=== PATIENT | female | born 1945 | race Caucasian/White ===

== ENCOUNTER 2016-07-16 11:30 | Observation (INO) | payer MEDICARE, OTHER ==
[~2016-07-16] VITALS: Ht 162.6 cm; Wt 52.0 kg
[~2016-07-16 11:30] MED LIST: ALPR0.25 PO; METO-448 PO; MULT-860 PO; VANC10VI PO; VITAMIN E PO; VITAMIN-C PO; WARFARIN; ZOLP10TA PO; [UNRECOGNIZED DRUG - OTHER]
[2016-07-16] MEDS ORDERED: HYDR-906 PO (12:45)
[2016-07-16] MEDS ORDERED: ALBU90AE INHALATION (12:45)
[2016-07-16] MEDS ORDERED: AMLO-145 PO (12:45)
[2016-07-16] MEDS ORDERED: SIME125T8 PO (12:45)
[2016-07-16 13:14] VITALS: BP 113/68; PULSE 83; RESP 18
[2016-07-16] MEDS ORDERED: ONDANSETRON 4 MG INJ IV PRN (13:30)
[2016-07-16] MEDS ORDERED: MAGNESIUM HYDROXIDE 30ML CUP PO PRN (13:30)
[2016-07-16] MEDS ORDERED: NACL 0.9% 3 ML SYG IV SCH (13:30)
[2016-07-16] MEDS ORDERED: ACETAMINOPHEN 325 MG TAB PO PRN (13:30)
[2016-07-16 13:36] VITALS: Ht 162.6 cm; Wt 52.0 kg
[2016-07-16 14:19] LABS: ADD UMIC NO; URINE BILIRUBIN (Dip) NEGATIVE (NEGATIVE); URINE BLOOD (Dip) NEGATIVE (NEGATIVE); URINE COLOR LT. YELLOW (YELLOW); URINE GLUCOSE (Dip) NEGATIVE (NEGATIVE); URINE KETONES (Dip) NEGATIVE (NEGATIVE); URINE LEUKOCYTE ESTERASE (Dip) NEGATIVE (NEGATIVE); URINE NITRITE (Dip) NEGATIVE (NEGATIVE); URINE TOTAL PROTEIN (Dip) NEGATIVE (NEGATIVE); URINE UROBILINOGEN (Dip) 0.2 E.U./dL (0.1-1.0)
[2016-07-16] MEDS: MULTIVITAMINS/MINERALS TAB PO SCH (14:21)
--- NOTE | 2016-07-16 14:53 | PREOPHP ---
DATE OF ADMISSION: 07/16/2016 REASON FOR ADMISSION: Anemia, recurrence of lung cancer, and abdominal pain. HISTORY OF PRESENT ILLNESS: This 70-year-old female was admitted today because of increasing abdomi nal pain. The patient was seen by me last week after she was discharged from [facility] because of acute respiratory failure with hypoxia, acute bronchitis. The patient has k nown lung cancer. She was initially diagnosed with this in 2014. She had a right lung cancer and s he underwent a course of chemotherapy and radiation. She has been in remission. 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 The patient was seen by me as I mentioned above in my office and at that time she had lower abdominal pain with discoloration and large ecchymoses. The patient had been on Coumadin for intermittent atrial fibrillation; however, h er INR was low at 1.5. I did tell the patient to stop the Coumadin at that time. The patient has a lso had a cough. The patient has been taking the following medications: 1. Albuterol inhaler 2 puffs every 4 hours as needed. 2. Amlodipine 5 mg a day. 3. Guaifenesin extended release. 4. Atrovent inhaler 2 puffs every 6 hours as needed. 5. [place] 325/5 every 4 hours p.r.n. pain. 6. She was on a tapering dose of prednisone. 7. Alprazolam 0.25 p.o. daily. 8. Gas-X 125 p.o. b.i.d. p.r.n. abdominal pain. 9. The patient has previously been on metoprolol 25 mg twice a day which was not continued. 10. She is on Effexor XR 150 mg a day. 11. Prolia 60 mg subQ every 6 months. PAST MEDICAL HISTORY: Her past medical history is remarkable for peptic ulcer disease, Crohn's dis ease, dysthymic disorder, peptic ulcer disease, hypertension, macular degeneration and lung cancer a s mentioned above. SURGICAL HISTORY: Appendectomy, tonsillectomy, breast biopsy, lung tumor biopsy. FAMILY HISTORY: Father is of lung cancer. Mother is alive. She has one sibling from kidney disease. SOCIAL HISTORY: The patient was a former smoker, has not smoked in years. She does not use recreat ional drugs. She does drink alcohol socially. ALLERGIES: PENICILLIN. PHYSICAL EXAMINATION: GENERAL: At this time reveals a well-developed female in no apparent distress. VITAL SIGNS: Temperature 97.6, pulse of 83, respirations 18, blood pressure 113/68, O2 saturation 9 8% on room air. HEENT: Head normocephalic. Eyes: Extraocular muscles intact. NOSE AND MOUTH: Normal. NECK: Supple. No neck vein distention. LUNGS: There was some congestion. There were diminished breath sounds bilaterally with an occasion al rhonchi which cleared with coughing. HEART: Regular rhythm. No murmurs, gallops or rubs. ABDOMEN: There is some ecchymotic discoloration over the lower abdomen. There is tenderness and wh at seems to be a distended bladder which is tender on the lower abdomen. Upper abdominal exam she d oes have some slight left upper quadrant tenderness with no rebound. EXTREMITIES: Trace pretibial edema. NEUROLOGIC: Grossly intact. IMPRESSION: 1. History of right-sided lung cancer, status post chemotherapy and radiation treatment. She was i n remission until recently when she had a CAT scan of the chest done at [facility] which showed a mediastinal mass and superior vena cava syndrome. This is all consistent with recurrence of lung cancer. 2. Distended urinary bladder. 3. Anemia. 4. History of atrial fibrillation, flutter was previously on Coumadin. 5. Hypertension. 6. Dysthymic disorder. 7. Crohn's disease. 8. Chronic obstructive pulmonary disease. PLAN: 1. Order CAT scan of chest, abdomen and pelvis. 2. Routine laboratory tests. 3. Routine medications. 4. Oncology consultation with Dr. Sparks. Dictated By: MASSIMO POE MD, ND/BRYCE Conf#: [id number] DID#: [id number]
[2016-07-16] MEDS: HYDROCODONE/APAP (5/325) TAB PO PRN (15:47)
[2016-07-16 16:03] LABS: ADD SCAN DIFF NO
[2016-07-16 16:08] LABS: BASOPHILS % 0.2 % (0.0-2.0); EOSINOPHILS # 0.1 10^3/ul (0.0-0.5); EOSINOPHILS % 1.2 % (0.0-7.0); HEMATOCRIT 28.3 % (37.0-47.0); HEMOGLOBIN 9.3 g/dl (12.0-16.0); LYMPHOCYTES # 1.3 10^3/ul (0.8-2.9); LYMPHOCYTES % 15.1 % (15.0-51.0); MEAN CORPUSCULAR HEMOGLOBIN 32.1 pg (29.0-33.0); MEAN CORPUSCULAR HGB CONC 32.9 g/dl (32.0-37.0); MEAN CORPUSCULAR VOLUME 97.6 fl (82.0-101.0); MEAN PLATELET VOLUME 8.6 fl (7.4-10.4); MONOCYTE # 0.6 10^3/ul (0.3-0.9); MONOCYTES % 6.5 % (0.0-11.0); NEUTROPHIL # 6.5 10^3/ul (1.6-7.5); NEUTROPHILS % 76.5 % (39.0-77.0); PLATELET COUNT 280 10^3/UL (140-415); RED CELL DISTRIBUTION WIDTH 17.5 % (11.5-14.5); WHITE BLOOD COUNT 8.5 10^3/ul (4.8-10.8)
--- NOTE | 2016-07-16 16:15 | RADRPT ---
PROCEDURE: XR Chest. CLINICAL INDICATION: Shortness of breath. TECHNIQUE: Single frontal view. COMPARISON: 12/25/2013. FINDINGS: The lungs are clear. The heart size is normal. There is no pleural effusion or pneumothorax. There are 3 surgical anchors in the left humeral head. IMPRESSION: 1. Prior left shoulder surgery. 2. Otherwise normal chest x-ray. RPTAT: QQ .Tereso Watkins MD, MD Date Time Electronically viewed and signed by .Tereso Watkins MD, on 07/16/2016 16:15 .R/
[2016-07-16 16:29] LABS: INR 0.94; PARTIAL THROMBOPLASTIN TIME 23.2 Sec (25.0-35.0); PROTIME 12.6 Sec (12.2-14.2)
[2016-07-16 16:30] LABS: ALBUMIN 3.6 g/dl (3.3-4.9); ALBUMIN/GLOBULIN RATIO 1.33; BILIRUBIN,INDIRECT 0.6 mg/dl (0-1.1); BILIRUBIN,TOTAL 0.6 mg/dl (0.2-1.3); CREATININE 0.61 mg/dl (0.44-1.00); MAGNESIUM 2.1 mg/dl (1.7-2.5); PHOSPHORUS 3.2 mg/dl (2.5-4.9); POTASSIUM 3.7 mmol/L (3.5-5.1); TOTAL PROTEIN 6.3 g/dl (6.1-8.1)
[2016-07-16] MEDS ORDERED: IOHEXOL 14.3 MG(I)/ML (ADULT) BTL PO ONE ×2 (17:30)
[2016-07-16] MEDS ORDERED: BARIUM SULF 2% 450 ML BTL (BERRY SMOOTHIE) PO ONE ×3 (17:30→18:00)
[2016-07-16 19:01] VITALS: BP 122/68; RESP 18
--- NOTE | 2016-07-16 19:47 | RADRPT ---
PROCEDURE: XR Chest. CLINICAL INDICATION: Possible anterior mediastinal mass. TECHNIQUE: PA and Lateral views of the chest were obtained. COMPARISON: 12/25/2013 and 07/16/2016 Chest x-ray FINDINGS: The cardiomediastinal silhouette is within normal limits of size. No soft tissue abnormality anterio r mediastinum. CT correlation may be considered for further evaluation. Hyperexpansion compatible w ith COPD. Atherosclerotic calcification of the aorta. The lungs are clear without pleural effusion or focal consolidation. No pneumothorax. The osseous structures and soft tissues are unremarkable. 3 surgical anchors in the left humeral head. IMPRESSION: 1. No evidence for active cardiopulmonary disease. Hyperexpansion compatible with COPD. RPTAT:AAJJ Aletha Tobin Physician Date Time Electronically viewed and signed by Physician Sanjeev on 07/16/2016 19:47 FABIENNE/
--- NOTE | 2016-07-16 20:24 | RADRPT ---
Vent Rate: 77 bpm RR Interval: 0 msec RI Interval: 162 msec QRS Duration: 78 msec QT Interval: 376 msec QTC Interval: 425 msec P-R-T Mason: 67 - 47 - 66 degrees Normal sinus rhythm Normal ECG Electronically Signed By: Jose Pardo [id number]
[2016-07-16] MEDS ORDERED: SOD CHLORIDE 0.9% 100 ML ONE (20:58)
[2016-07-16] MEDS ORDERED: IOHEXOL 300MG/ML 150 ML BTL ONE (20:58)
[2016-07-16] MEDS: METOPROLOL 25 MG TAB PO SCH (21:01)
--- NOTE | 2016-07-16 21:55 | RADRPT ---
PROCEDURE: CT abdomen and pelvis with intravenous contrast. CLINICAL INDICATION: hx of small cell CA of lung--pelvic mass and hemorrhage TECHNIQUE: Following intravenous contrast, spiral CT of the abdomen pelvis was performed and is re constructed at 2.5 mm contiguous axial intervals from the dome of the diaphragm to the inferior pubi c rami. Computer reformatted coronal and sagittal images are included. CT D I 7 millicurie Dose 471 millicurie per centimeter COMPARISON: None. FINDINGS: The liver is of normal size, contour and attenuation with no mass or intrahepatic ductal dilatation. No gallstones are present. No adrenal or pancreatic abnormalities present. Calcified granulomata are present in the spleen. Kidneys excrete contrast symmetrically. No hydronephrosis, calculus or solid masses present. Multip le cortical cysts are seen in the left kidney. Ureters are of normal course and caliber with no sto ne. No bladder mass or stone is present. Cordova catheter is present in the urinary bladder. Calcified fibroids are seen in an atrophic postmenopausal uterus. No adnexal mass is visualized. No bowel mass or obstruction is seen. There is constipation. There is no phlegmon, ascites or pneumo peritoneum. No aneurysm is detected. Calcified plaque is noted in the aorta. There is no adenopathy. Visible but nonpathologically enlarged nodes are seen in the gastrohepatic l igament. The osseous structures are intact. No lytic or blastic lesions are identified. There is facet arthr opathy in the lower lumbar spine. Noted is a left rectus sheath hematoma measuring 7.6 cm T R by 4.4 cm AP by 8.5 cm CC. No active ex travasation is noted. Hypertrophied venous collaterals are seen in the anterior abdominal wall. IMPRESSION: No evidence of urolithiasis, obstructive uropathy, diverticulitis or appendicitis. No evidence of metastatic disease. Cortical cysts left kidney. Left rectus sheath hematoma without active extravasation. .Ethan Goldman MD, MD Date Time Electronically viewed and signed by .Ethan Goldman MD, on 07/16/2016 21:55 .A/
--- NOTE | 2016-07-16 22:00 | RADRPT ---
PROCEDURE: Postcontrast CT Chest. CLINICAL INDICATION: Lung cancer TECHNIQUE: The study was performed utilizing a multidetector CT scanner. Direct spiral 1 mm axial sections were obtained from the thoracic inlet to the upper abdomen with the use of 100 cc of Omnipa que 350 nonionic intravenous contrast material and reformatted at 2.5 millimeter contiguous axial in tervals. Coronal, sagittal and 3-D reformations were obtained. The images were reviewed on a PACS wo [employer]. CT D I 7 mCi. Dose 471 mCi per centimeter COMPARISON: CT chest November 16, 2013 FINDINGS: There is hyperinflation with emphysema most pronounced in the upper lobes. Fibrotic scar is again n oted in the apical segment of the right upper lobe. There is linear fibrosis or plate-like atelecta sis in the right lower lobe. No alveolar infiltrate or mass is present. There is no pneumothorax a nd no pleural effusion is seen. There are calcified nonenlarged mediastinal nodes compatible with o ld granulomatous disease. No hilar or mediastinal adenopathy or masses present. There is mild aneu rysmal dilatation of the ascending thoracic aorta measuring 3.5 cm in diameter. Coronary artery patti cifications are present. Noted is critical stenosis or occlusion of the superior vena cava. There are extensive hypertrophied chest wall venous collaterals. No pulmonary embolism is detected. Ther e is no axillary, supraclavicular or internal mammary chain adenopathy. No lytic or blastic lesions are seen. IMPRESSION: Emphysema. Scarring and apical segment right upper lobe and right lower lobe. No evidence of residu al, recurrent or metastatic disease. Old granulomatous disease. Critical stenosis versus occlusion superior vena cava with hypertrophied chest wall collaterals. .Ethan Goldman MD, Date Time Electronically viewed and signed by .Ethan Goldman MD, on 07/16/2016 21:59 .A/
[2016-07-16] MEDS: ALPRAZOLAM 0.5 MG TAB PO PRN (23:01)
--- NOTE | 2016-07-16 23:48 | CONS ---
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 Dear Dr. Poe: HISTORY OF PRESENT ILLNESS: Thank you very much for asking me to see this very interesting and plea estefani patient in oncologic consultation. As you know, I am familiar with Mrs. Cruz, who I initi ally saw in 07/2013. At that time, the patient had recently been noted to have a right suprahilar a nterior mediastinal mass. This was discovered when the patient was undergoing cardiac evaluation, w hich included a nuclear medicine stress test. 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 The patient did undergo combined chemotherapy and radiation therapy. 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 She completed chemotherapy on 11/05/2013. The patient also had radiation therapy to the chest. This was completed in 10/2013. Following the completion of these treatments, the patient had prophylactic cranial radiation, which was completed on 04/26/2014. The patient has never had any evidence of recurrence of disease. In 03/2015, the patient had a PET CT scan, which did not demonstrate any evidence of recurrent disea se, but did show right-sided rib fractures in a pattern, which was felt to be typical for trauma. The patient was admitted to [facility] at this time, as the patient has been exper iencing increase in lower abdominal pain with a large ecchymotic area on the anterior abdominal wall and pelvic discomfort. The patient apparently was hospitalized at [facility] approximately 2 weeks ago. The patie nt stated that overnight that she had been found to have developed a large abdominal wall ecchymosis , which has increased over time. The patient had initially been on warfarin, but this apparently wa s discontinued. The patient has not taken warfarin now for over a week. During the hospitalization at [facility], she was found to have a mediastinal mass with rosa dence of superior vena caval syndrome. The patient, on admission now, has had a chest x-ray. This was a single view and it was normal exce pt for evidence of prior left shoulder surgery. On admission, white count 8500 with an absolute mamadou trophil count of 6500, absolute lymphocyte count of 1300, hemoglobin 9.3, hematocrit 28.3, MCV 97.6, MCH 32.1, MCHC 32.9, RDW 17.5, and platelet count 280,000. Prothrombin time 12.6 seconds, INR 0.94 , PTT 23.2 seconds. Sodium 133, potassium 3.7, creatinine 0.61, BUN 13, calcium 9.0. Total bilirub in 0.6, direct bilirubin 0, AST 20, ALT 32, alkaline phosphatase 70. Total protein 6.3, albumin 3.6 . PAST MEDICAL HISTORY: Does include the history of the small cell carcinoma of the lung. Other medi patti problems include a history of hypertension. The patient has had a left shoulder humeral fractur e in the past. The patient also states that she has a history of Crohn disease. This was present s edgar her early 20s. She has been treated in the past with Humira. She states she had an excellent response, but then became refractory. Her last treatment with Humira was approximately 8 years ago. PAST SURGICAL HISTORY: Included left shoulder surgery. She has also had a segmental resection of t he small bowel due to her Crohn disease. Other surgeries have included an appendectomy, tonsillecto my, and breast biopsy. MEDICATIONS: At this time include: 1. Amlodipine 5 mg per day. 2. Atrovent inhaler 2 puffs every 6 hours as needed. 3. Albuterol 2 puffs every 4 hours as needed. 4. Hydrocodone with acetaminophen 5/325 every 4 hours p.r.n. 5. Alprazolam 0.25 mg daily. 6. Effexor XR 150 mg daily. 7. Denosumab 60 mg subq every 6 months. SOCIAL HISTORY: The patient is . She has not knowingly been exposed to industrial toxins, b ut has received both cytotoxic chemotherapeutic agents and ionizing radiation in the form of radiati on therapy as noted above. FAMILY HISTORY: Remarkable that the patient's father apparently had lung cancer. SOCIAL HISTORY: The patient did not smoke in the past. Has not smoked now, however, in several yea rs. She does drink alcohol minimally. ALLERGIES: THE PATIENT IS ALLERGIC TO PENICILLIN. PHYSICAL EXAMINATION: At this time: VITAL SIGNS: Temperature 97.6, pulse 83 per minute and regular, respirations 18, blood pressure 113 /68, pulse oximetry 98% on room air. GENERAL: Otherwise, the patient is a well-developed, well-nourished female in no acute distress. SKIN: There is a large ecchymotic area on the patient's entire anterior lower abdomen. There are o ther ecchymotic areas on the dorsal aspect of both hands. HEENT: Normocephalic. No evidence of trauma. Pupils equal, round, react to light and accommodatio n. Sclerae nonicteric. Oral mucosa is moist without lesions. Tongue is well papillated. No gingi sami hyperplasia. No hypertrophy of Waldeyer ring. No mucosal telangiectasias. NECK: Supple. No jugular venous distention or thyroid enlargement. CHEST: Decreased breath sounds throughout. More decreased on the left than on the right. There is some dullness to percussion on the left as well. The chest is asymmetrical with a bulging on the l eft hemithorax along the left sternum. HEART: Regular sinus rhythm. No S3, S4, or murmurs. ABDOMEN: Includes a large ecchymotic area in the lower abdomen. There is a firm mass in the suprap ubic area, which is tender to touch. There is no ascites. Bowel sounds are active. EXTREMITIES: Good range of motion. No clubbing or cyanosis. No edema. No palpable cords or Keyla s sign. VASCULAR: There is a markedly distended venous pattern on the abdomen, particularly on the left armin e of the abdomen. Also on the left anterior chest. There is no erythema over these areas. NEUROLOGIC: Within normal limits. DISCUSSION: This patient does have a history of the previous small cell carcinoma of the lung. She has been treated in the past with combined chemotherapy and radiation therapy, including prophylact ic cranial radiation. The patient has had no evidence of recurrent disease since the discontinuatio n of all therapy in 04/2014. The patient is now apparently been found to have an anterior mediastinal mass and possible vena cava l syndrome during recent hospitalization at [facility]. The patient was [facility] t [facility] for respiratory symptoms, which seemed to have improved. She denies chest pain. She has had no cough or hemoptysis. The patient does have a large ecchymotic area on the anterior abdominal wall with what is felt to be distended urinary bladder, but may actually be a pelvic mass and/or hematoma. The presence of the anterior mediastinal mass and the markedly dilated anterior chest wall and abdom inal wall veins suggest a venocaval obstruction, although it is interesting that the patient does no t have jugular venous distension or positive Kussmaul sign. As noted, the patient has had a previous small cell carcinoma of the lung, and certainly the most li gilbert etiology for the mediastinal mass and possibly pelvic mass, may be recurrent small cell carcino ma, although it would be unusual for the patient to have gone 2 years in apparent remission. One must consider the possibility as well of a second malignancy. The patient had in the past been on Humira and therefore does have an increased risk of malignant disease, such as lymphoproliferativ e disorders. The patient, however, has not been on Humira for over 5 years. The patient is moderately anemic now. As noted, there is a pelvic mass, which may actually represen t a hematoma, which would be quite large, and may account somewhat for the patient's anemia. At this time, I will request a lateral chest x-ray, which is more likely to demonstrate the previous ly noted mediastinal mass. We will also obtain a CT scan of the abdomen and pelvis as well as chest , both with and without contrast. Would also request a CEA at this time. If the patient is found to have a mediastinal mass or other evidence of malignancy, a biopsy will be necessary to rule out either recurrence of small cell carcinoma or a second malignancy. Once again, thank you very much for the opportunity of participating in the medical care of this jey y interesting and pleasant patient. I will be happy to follow this patient with you and assist in h er oncologic evaluation and follow up as necessary. With warmest regards, Dictated By: GEORGE INGRAM MD SR/NTS Conf#: [id number] DID#: [id number] CC: YAYA POE MD;*EndCC*
[2016-07-17 07:55] VITALS: BP 127/84; RESP 18
[2016-07-17] MEDS: MULTIVITAMINS/MINERALS TAB PO SCH (08:54)
[2016-07-17] MEDS: METOPROLOL 25 MG TAB PO SCH ×2 (08:54→22:19)
[2016-07-17] MEDS: HYDROCODONE/APAP (5/325) TAB PO PRN ×2 (08:54→13:17)
[2016-07-17] MEDS ORDERED: AMLODIPINE 5 MG TAB PO SCH (09:00)
--- NOTE | 2016-07-17 09:24 | PN ---
Date/Time of Note Date/Time of Note DATE: 07/17/16 TIME: 09:16 Assessment/Plan VTE Prophylaxis VTE Prophylaxis Intervention: contraindicated VTE Contraindication Reason: bleeding Lines/Catheters IV [facility] Urinary Cath still in place: No Assessment/Plan Chief Complaint/Hosp Course 1. abdominal pain due to L rectus muscle hematoma . She was on coumadin 2. superior venacava syndrome , for MRI today 3. h/o lung ca , s/p radiation and chemotherapy , no obvious recurrence on CT of chest or abdomen . 4. COPD 5. anemia 6. a fib/flutter Problems: Subjective 24 Hr Interval Summary Free Text/Dictation she continues to have L lower abdominal pain . Eyes: no complaints ENT: no complaints Respiratory: cough, shortness of breath Cardiovascular: no complaints Gastrointestinal: pain Exam/Review of Systems Vital Signs Vitals Vital Signs Date Time Temp Pulse Resp B/P Pulse Ox O2 Delivery O2 Flow Rate FiO2 07/17/16 07:55 98.1 92 18 127/84 97 07/16/16 13:14 Room Air Intake and Output 07/16/16 07/16/16 07/17/16 15:00 23:00 07:00 Intake Total 600 ml 640 ml Output Total 550 ml 1800 ml Balance 50 ml -1160 ml Exam Constitutional: alert, oriented, well developed Eyes: nl conjunctiva ENMT: nl external ears & nose Respiratory: congested cough, diminished breath sounds Cardiovascular: regular rate and rhythm Gastrointestinal: soft, tender Musculoskeletal: nl extremities to inspection Results Result Diagram: 07/16/16 1554 07/16/16 1554 Results 24 hrs Laboratory Tests Test 07/16/16 13:55 07/16/16 15:54 Urine Color LT. YELLOW Urine Clarity CLEAR Urine pH 6.5 Urine Specific [place] <=1.005 L Urine Ketones NEGATIVE Urine Nitrite NEGATIVE Urine Bilirubin NEGATIVE Urine Urobilinogen 0.2 E.U./dL Urine Leukocyte Esterase NEGATIVE Urine Hemoglobin NEGATIVE Urine Glucose NEGATIVE Urine Total Protein NEGATIVE White Blood Count 8.5 # Red Blood Count 2.90 #L Hemoglobin 9.3 #L Hematocrit 28.3 #L Mean Corpuscular Volume 97.6 Mean Corpuscular Hemoglobin 32.1 Mean Corpuscular Hemoglobin Concent 32.9 Red Cell Distribution Width 17.5 H Platelet Count 280 Mean Platelet Volume 8.6 Neutrophils % 76.5 Lymphocytes % 15.1 Monocytes % 6.5 Eosinophils % 1.2 Basophils % 0.2 Nucleated Red Blood Cells % 0.0 Neutrophils # 6.5 Lymphocytes # 1.3 Monocytes # 0.6 Eosinophils # 0.1 Basophils # 0.0 Nucleated Red Blood Cells # 0.0 Prothrombin Time 12.6 Prothrombin Time Ratio 1.0 INR International Normalized Ratio 0.94 Activated Partial Thromboplast Time 23.2 L Sodium Level 133 L Potassium Level 3.7 Chloride Level 101 Carbon Dioxide Level 28 Anion Gap 8 Blood Urea Nitrogen 13 Creatinine 0.61 Glucose Level 111 Calcium Level 9.0 Phosphorus Level 3.2 Magnesium Level 2.1 Total Bilirubin 0.6 Direct Bilirubin 0.00 Indirect Bilirubin 0.6 Aspartate Amino Transf (AST/SGOT) 20 Alanine Aminotransferase (ALT/SGPT) 32 Alkaline Phosphatase 70 Total Protein 6.3 Albumin 3.6 Globulin 2.70 Albumin/Globulin Ratio 1.33 Carcinoembryonic Antigen 8.7 H Medications Medications Current Medications Ondansetron HCl (Zofran Inj) 4 mg Q6H PRN IV NAUSEA AND/OR VOMITING; Start at 13:30 Acetaminophen (Tylenol Tab) 650 mg Q6H PRN PO PAIN LEVEL 1-3 OR FEVER; Start at 13:30 Acetaminophen/ Hydrocodone Bitart ([place] (5/325)) 1 tab Q6H PRN PO MODERATE PAIN LEVEL 4-6 Last administered on 07/17/16 08:54; Admin Dose 1 TAB; Start at 13:30 Magnesium Hydroxide (Milk Of Mag) 30 ml DAILY PRN PO CONSTIPATION; Start at 13:30 Metoprolol Tartrate (Lopressor) 25 mg BID PO Last administered on 07/17/16 08: 54; Admin Dose 25 MG; Start 07/16/16 at 21:00 Multivitamins/ Minerals (Theragran-M) 1 tab DAILY PO Last administered on 08:54; Admin Dose 1 TAB; Start 07/16/16 at 15:00 Simethicone (Mylicon) 80 mg Q8H PRN PO DISTENSION/GAS/BLOATING; Start 07/16/16 at 14:00 Alprazolam (Xanax) 0.5 mg BID PRN PO ANXIETY Last administered on 5/15/17at 23: 01; Admin Dose 0.5 MG; Start 07/16/16 at 14:00 MASSIMO POE MD July 17, 2016 09:24
--- NOTE | 2016-07-17 10:59 | PN ---
DATE: 07/17/2016 HEMATOLOGY/ONCOLOGY PROGRESS NOTE SUBJECTIVE: The patient states she is feeling well other than suprapubic discomfort. She has not c omplained of shortness of breath or cough. She has no complaints of chest pain. OBJECTIVE: GENERAL: Well-developed, well-nourished female in no acute distress. VITAL SIGNS: Temperature of 98.1, pulse 81, respirations 18, blood pressure 127/84, pulse oximetry 97% on room air. SKIN: No petechiae or rashes. There is a large ecchymotic area extending across the entire lower a bdomen. Also some ecchymoses on the dorsal aspect of the hands. HEENT: No mucosal lesions. No scleral icterus. NECK: Supple, no jugular venous distention or thyroid enlargement. No Kussmaul sign. CHEST: Decreased breath sounds throughout. No rhonchi, wheezes, rales or rubs. There is a markedl y distended venous pattern on the anterior chest wall, particularly on the left side. Left hemithor ax seems prominent anteriorly. HEART: Regular sinus rhythm, no S3, S4, murmurs. No rubs. NODES: No palpable lymphadenopathy in the lymph node bearing area. BREASTS: Atrophic, no masses, skin retraction, or nipple inversion. ABDOMEN: There is a markedly distended venous pattern on the left anterior abdominal wall. There i s also noted a large ecchymotic area in the lower abdomen. There is a tender mass in the midline frances prapubic area measuring approximately 7 to 8 cm. It is very tender. It is not fluctuant. There ar e no bruits heard over this mass. EXTREMITIES: Good range of motion. No clubbing, no edema or cyanosis. There is no upper extremit y edema. NEUROLOGIC: Normal. LABORATORY DATA: CEA is 8.7. A PA and lateral of the chest does not show any evidence of anterior mediastinal abnormality. A CT scan of the chest also shows evidence of COPD with apical segment rig ht upper lobe and right lower lobe scarring. There is no evidence of residual recurrent or metastat ic carcinoma. There is, however, critical stenosis versus occlusion of the vena cava with dilated c hest wall collaterals. A CT scan of the abdomen and pelvis does not demonstrate any evidence of met astatic disease. There is a large rectus sheath hematoma without extravasation. This measured 7.6 x 4.4 x 8.5 cm. ASSESSMENT: 1. History of small cell carcinoma in remission. 2. Rectus sheath hematoma. 3. 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 PLAN: We will schedule the patient for a superior vena cavagram at this time. If the patient has t hrombosis, it is unlikely that any attempt at revascularization is possible at this time. If this i s stenosis, perhaps an endovascular stent can be placed. Dictated By: GEORGE INGRAM MD, SR/BRYCE Conf#: [id number] DID#: [id number]
[2016-07-17 12:27] LABS: ALBUMIN 3.3 g/dl (3.3-4.9); POTASSIUM 3.5 mmol/L (3.5-5.1)
[2016-07-17 12:28] LABS: ALBUMIN/GLOBULIN RATIO 1.32
[2016-07-17 12:29] LABS: BILIRUBIN,INDIRECT 0.9 mg/dl (0-1.1); BILIRUBIN,TOTAL 0.9 mg/dl (0.2-1.3); CALCIUM 8.9 mg/dl (8.4-10.2); CREATININE 0.53 mg/dl (0.44-1.00); TOTAL PROTEIN 5.8 g/dl (6.1-8.1)
[2016-07-17] MEDS: ALPRAZOLAM 0.5 MG TAB PO PRN (13:17)
--- NOTE | 2016-07-17 13:29 | RADRPT ---
PROCEDURE: MRA chest without and with contrast. CLINICAL INDICATION: Superior vena cava obstruction versus stenosis. History of lung cancer status post radiation therapy. TECHNIQUE: MRA of the abdomen before after the uneventful intravenous administration of 20 cc of M agnevist on a high Bella MRI scanner. 3-D/multiplanar reformations were performed by the technologis t and an independent workstation. Images were reviewed on a high-resolution PACS workstation. COMPARISON: CT chest with contrast 07/16/2016. CT chest dated 11/16/2013. FINDINGS: Vascular findings: There is occlusion of the central superior vena cava and left innominate vein with extensive collate rals in the chest wall and the lower neck. There is mild narrowing of the central left subclavian ve in near the anastomosis with left jugular vein. There is compensatory enlargement of the azygos veno us system. There is a normal caliber thoracic aorta. The great vessels of the thoracic arch are patent with no significant ostial stenosis. There is a left dominant vertebral basilar arterial system. IMPRESSION: 1. 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 2. Mild narrowing of the central left subclavian vein near the junction with left jugular vein. 3. Hypertrophic azygos venous system likely secondary to chronic occlusion of the central veins in the chest. 4. Normal caliber thoracic aorta. 5. Great vessels off the thoracic arch are patent with no significant wall thickening or ostial aliza nosis. RPTAT: BB .Regina Booker MD, Date Time Electronically viewed and signed by .Regina Booker MD, MD on 07/17/2016 13:29 .O/
[2016-07-17] MEDS: ALBUTEROL/IPRATROPIUM (NEB) 3 ML AMP HHN SCH ×3 (14:03→21:00)
[2016-07-17 19:16] VITALS: BP 109/74; RESP 18
[2016-07-17 22:15] VITALS: BP 115/74; PULSE 104; RESP 16
[2016-07-18] MEDS: ALBUTEROL/IPRATROPIUM (NEB) 3 ML AMP HHN SCH ×3 (01:19→09:18)
[2016-07-18] MEDS: ALPRAZOLAM 0.5 MG TAB PO PRN ×2 (01:34→12:38)
[2016-07-18 05:14] LABS: ADD SCAN DIFF NO
[2016-07-18 05:20] LABS: BASOPHILS % 0.4 % (0.0-2.0); EOSINOPHILS # 0.1 10^3/ul (0.0-0.5); EOSINOPHILS % 0.6 % (0.0-7.0); HEMATOCRIT 31.3 % (37.0-47.0); HEMOGLOBIN 10.2 g/dl (12.0-16.0); LYMPHOCYTES % 12.1 % (15.0-51.0); MEAN CORPUSCULAR HEMOGLOBIN 32.7 pg (29.0-33.0); MEAN CORPUSCULAR HGB CONC 32.6 g/dl (32.0-37.0); MEAN CORPUSCULAR VOLUME 100.3 fl (82.0-101.0); MONOCYTE # 0.5 10^3/ul (0.3-0.9); MONOCYTES % 6.4 % (0.0-11.0); NEUTROPHIL # 6.6 10^3/ul (1.6-7.5); NEUTROPHILS % 80.3 % (39.0-77.0); PLATELET COUNT 266 10^3/UL (140-415); RED BLOOD COUNT 3.12 10^6/ul (4.20-5.40); RED CELL DISTRIBUTION WIDTH 18.6 % (11.5-14.5); WHITE BLOOD COUNT 8.2 10^3/ul (4.8-10.8)
[2016-07-18 05:49] LABS: ALBUMIN 3.2 g/dl (3.3-4.9); ALBUMIN/GLOBULIN RATIO 1.23; BILIRUBIN,INDIRECT 0.5 mg/dl (0-1.1); BILIRUBIN,TOTAL 0.5 mg/dl (0.2-1.3); CALCIUM 8.7 mg/dl (8.4-10.2); CREATININE 0.53 mg/dl (0.44-1.00); POTASSIUM 3.3 mmol/L (3.5-5.1); TOTAL PROTEIN 5.8 g/dl (6.1-8.1)
[2016-07-18 07:52] VITALS: BP 105/75; RESP 18
[2016-07-18] MEDS: MULTIVITAMINS/MINERALS TAB PO SCH (08:16)
[2016-07-18] MEDS: METOPROLOL 25 MG TAB PO SCH (08:17)
[2016-07-18 08:18] VITALS: BP 112/70; PULSE 106
[2016-07-18] MEDS ORDERED: POTASSIUM CHLORIDE (SR) 20 MEQ TAB PO STA (08:36)
--- NOTE | 2016-07-18 08:47 | CONS ---
Date/Time of Note Date/Time of Note DATE: 07/18/16 TIME: 08:40 Assessment/Plan Assessment/Plan Chief Complaint/Hosp Course 1. abdominal pain due to L rectus muscle hematoma , less pain today . She was on coumadin 2. 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 3. h/o lung ca , s/p radiation and chemotherapy , no obvious recurrence on CT of chest or abdomen . 4. COPD 5. anemia 6. a fib/flutter Problems: Consultation Date/Type/Reason Admit Date/Time July 16, 2016 at 11:56 Initial Consult Date 24 HR Interval Summary Free Text/Dictation She is having less abdominal pain . MRI shows chronic obstruction of superior vena cava . Constitutional: improved Exam/Review of Systems Vital Signs Vitals Vital Signs Date Time Temp Pulse Resp B/P Pulse Ox O2 Delivery O2 Flow Rate FiO2 07/18/16 08:18 106 112/70 07/18/16 07:52 98.3 18 94 07/18/16 05:24 21 07/18/16 01:20 2.0 07/18/16 01:19 Nasal Cannula Intake and Output 07/17/16 07/17/16 07/18/16 15:00 23:00 07:00 Intake Total 750 ml 420 ml Output Total 450 ml Balance 300 ml 420 ml Exam Constitutional: alert, frail, oriented Respiratory: clear to auscultation, normal air movement Cardiovascular: regular rate and rhythm Gastrointestinal: soft, tender Musculoskeletal: nl extremities to inspection Results Result Diagram: 07/18/16 0420 07/18/16 0420 Results 24 hrs Laboratory Tests Test 07/17/16 11:35 07/18/16 04:20 Sodium Level 137 135 Potassium Level 3.5 3.3 L Chloride Level 99 103 Carbon Dioxide Level 29 26 Anion Gap 13 9 Blood Urea Nitrogen 11 14 Creatinine 0.53 0.53 Glucose Level 106 131 Calcium Level 8.9 8.7 Total Bilirubin 0.9 0.5 Direct Bilirubin 0.00 0.00 Indirect Bilirubin 0.9 0.5 Aspartate Amino Transf (AST/SGOT) 21 18 Alanine Aminotransferase (ALT/SGPT) 29 21 Alkaline Phosphatase 80 72 Total Protein 5.8 L 5.8 L Albumin 3.3 3.2 L Globulin 2.50 2.60 Albumin/Globulin Ratio 1.32 1.23 White Blood Count 8.2 Red Blood Count 3.12 L Hemoglobin 10.2 L Hematocrit 31.3 L Mean Corpuscular Volume 100.3 Mean Corpuscular Hemoglobin 32.7 Mean Corpuscular Hemoglobin Concent 32.6 Red Cell Distribution Width 18.6 H Platelet Count 266 Mean Platelet Volume 9.0 Neutrophils % 80.3 H Lymphocytes % 12.1 L Monocytes % 6.4 Eosinophils % 0.6 Basophils % 0.4 Nucleated Red Blood Cells % 0.0 Neutrophils # 6.6 Lymphocytes # 1.0 Monocytes # 0.5 Eosinophils # 0.1 Basophils # 0.0 Nucleated Red Blood Cells # 0.0 Medications Medications Current Medications Ondansetron HCl (Zofran Inj) 4 mg Q6H PRN IV NAUSEA AND/OR VOMITING; Start at 13:30 Acetaminophen (Tylenol Tab) 650 mg Q6H PRN PO PAIN LEVEL 1-3 OR FEVER; Start at 13:30 Acetaminophen/ Hydrocodone Bitart ([place] (5/325)) 1 tab Q6H PRN PO MODERATE PAIN LEVEL 4-6 Last administered on 07/17/16 13:17; Admin Dose 1 TAB; Start at 13:30 Magnesium Hydroxide (Milk Of Mag) 30 ml DAILY PRN PO CONSTIPATION; Start at 13:30 Metoprolol Tartrate (Lopressor) 25 mg BID PO Last administered on 07/18/16 08: 17; Admin Dose 25 MG; Start 07/16/16 at 21:00 Multivitamins/ Minerals (Theragran-M) 1 tab DAILY PO Last administered on 08:16; Admin Dose 1 TAB; Start 07/16/16 at 15:00 Simethicone (Mylicon) 80 mg Q8H PRN PO DISTENSION/GAS/BLOATING; Start 07/16/16 at 14:00 Alprazolam (Xanax) 0.5 mg BID PRN PO ANXIETY Last administered on 07/18/16 01: 34; Admin Dose 0.5 MG; Start 07/16/16 at 14:00 MASSIMO POE MD July 18, 2016 08:47
[2016-07-18] MEDS: HYDROCODONE/APAP (5/325) TAB PO PRN (09:35)
--- NOTE | 2016-07-18 10:40 | PN ---
DATE: 07/18/2016 SUBJECTIVE: Patient is feeling well except for continued lower abdominal pain. Patient denies coug h or shortness of breath. She is having no chest pain. No complaints of headaches. No facial swel ling or fullness. OBJECTIVE: GENERAL: This is a well-developed, well-nourished female in no acute distress. VITAL SIGNS: Temperature is 98, pulse 106 and regular, respirations 18, blood pressure 120/70, puls e oximetry 95% on room air. SKIN: No petechiae or rashes. There is still the large ecchymotic area across the anterior lower a bdomen. There are no petechiae or rashes. HEENT: Normocephalic. No evidence of trauma. Pupils equal, round, react to light and accommodatio n. Sclerae are nonicteric. Oral mucosa is moist without lesions. Tongue is well papillated. No g ingival hyperplasia, no hypertrophy of Waldeyer's ring. NECK: Supple, no jugular venous distention or thyroid enlargement. CHEST: Decreased breath sounds throughout, but no rhonchi, wheezes, rales or rubs. HEART: Sinus tachycardia. No S3, S4 or murmurs. No rubs. ABDOMEN: Soft, no masses or ascites, except for the midline lower abdominal mass in the area of the ecchymoses, which is still very tender to touch. It is not warm to the touch, is not fluctuant. B owel sounds are active. EXTREMITIES: No clubbing, no edema or cyanosis. No palpable cords or Homans sign. VASCULAR: There is marked venous dilatation across the anterior abdominal wall and also the anterio r chest wall, mostly on the left side. NEUROLOGIC: Normal. LABORATORY: White count today 8200 with absolute neutrophil count of 6600, hemoglobin 10.2, hemato crit 31.3, platelet count 266,000. Sodium 135, potassium 3.3, creatinine 0.53, BUN 14. MRA and MRI of the chest with and without contrast does show chronic occlusion of the central superi or vena cava and left innominate vein with extensive collaterals in the chest wall and lower neck. There is hypertrophy of the azygos venous system. IMPRESSION: 1. History of small cell carcinoma of the lung in remission. 2. Abdominal wall hematoma. 3. 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 I do feel that perhaps the patient should be seen in vascular consultation, although, it is highly u nlikely that any stenting or other procedures could be performed because of the chronicity of the frances perior vena caval obstruction. Dictated By: GEORGE INGRAM MD, SR/BRYCE Conf#: [id number] DID#: [id number]
--- NOTE | 2016-07-18 11:57 | CONS ---
Date/Time of Note Date/Time of Note DATE: 07/18/16 TIME: 11:40 Assessment/Plan Assessment/Plan Chief Complaint/Hosp Course Impression: - paroxysmal atrial fibrillation - currently in nsr, was on coumadin previous for stroke prophy, currently holding due to rectus sheath hematoma. - hold anticoag given hematoma - cont metoprolol as tolerated - rectus sheath hematoma- spontaneous, no e/o of supratherapeutic inr at tiem of bleeding, no ongoing bleeding noted on ct scan. 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 likely form previous radiation, chronic with well developed collarteral venous system. no mass on chest ct. no symptoms. - HTN- ocontrolled Problems: Consultation Date/Type/Reason Admit Date/Time July 16, 2016 at 11:56 Date of Consultation: July 18, 2016 Type of Consultation: Cardiology Reason for Consultation Paroxysmal Afib Referring Provider: MASSIMO POE MD Hx of Present Illness Ms. Cruz is a 70 y.o. woman with h/o of PAF previously on coumadin, small cell CA of the lung s/p chemo/xrt 2013. Pt recently admitted at [facility] for ARF and bronchitis. States she noticed inc swelling/abd pain. Was at home but had increased pain as outpt uncontrolled with medications. she then noticed increased bruising in R abd wall/hip. Pt admitted by her pcp given uncontrolled pain. pt had previously been on coumadin which was stopped prior to admission. CT abd show large L rectus sheath hematoma. Pt reports no cp, sob, no palpitations, dizziness, falls. Denies pnd, orthopnea, edema. She does have abd pain, but worse when laying down, better when up moving she states. no n/v, eating well, no constipation, diarrhea. Constitutional: no complaints Eyes: no complaints ENT: no complaints Respiratory: cough, shortness of breath Cardiovascular: no complaints Gastrointestinal: pain Genitourinary: No bleeding Musculoskeletal: back pain Skin: bruising Neurologic: no complaints Psychological: nl mood/affect, no complaints Immunologic: no complaints Past Medical History Diastolic dysfunction (429.9) (I51.9) 2-2013 Gr. I History of gastrointestinal hemorrhage (V12.79) (Z87.19) Secondary to Crohn's History of malignant neoplasm of lung (V10.11) (Z85.118) Oncologist Dr Sparks; Small Cell lung cancer Hypertension (401.9) (I10) Paroxysmal atrial fibrillation (427.31) (I48.0) History of Back Pain History of Crohn's disease of jejunum (555.0) (K50.00) History of gastrointestinal hemorrhage (V12.79) (Z87.19) History of Macular degeneration (362.50) (H35.30) History of Osteoporosis (733.00) (M81.0) History of Peptic Ulcer (V12.71) Family History Significant Family History: other (+_ stroke) Social History Alcohol Use: none Smoking Status: Former smoker Drug Use: none Exam/Review of Systems Vital Signs Vitals Vital Signs Date Time Temp Pulse Resp B/P Pulse Ox O2 Delivery O2 Flow Rate FiO2 07/18/16 09:18 88 18 95 21 07/18/16 08:18 112/70 07/18/16 07:52 98.3 07/18/16 01:20 2.0 07/18/16 01:19 Nasal Cannula Intake and Output 07/17/16 07/17/16 07/18/16 15:00 23:00 07:00 Intake Total 750 ml 420 ml Output Total 450 ml Balance 300 ml 420 ml Exam GENERAL: At this time reveals a well-developed female in no apparent distress. VITAL SIGNS: reviewed HEENT: Head normocephalic. Eyes: Extraocular muscles intact. NECK: Supple. No neck vein distention. no facial swelling/erythema. CHEST: prominent bridging veins. LUNGS: CTA b/l HEART: RRR nl s1s2, ii/vi gm rusb no s3/s4. ABDOMEN: + abd dilated biding veins, ecchymotic discoloration extends from L hip/lower abd to mid abd. There is tenderness and what seems to be a distended bladder which is tender on the lower abdomen. Upper abdominal exam she does have some slight left upper quadrant tenderness with no rebound. EXTREMITIES: no edema. NEUROLOGIC: no focal deficits Results Result Diagram: 07/18/1641907/18/16419 Results 24 hrs Laboratory Tests Test 07/18/16 04:20 White Blood Count 8.2 Red Blood Count 3.12 L Hemoglobin 10.2 L Hematocrit 31.3 L Mean Corpuscular Volume 100.3 Mean Corpuscular Hemoglobin 32.7 Mean Corpuscular Hemoglobin Concent 32.6 Red Cell Distribution Width 18.6 H Platelet Count 266 Mean Platelet Volume 9.0 Neutrophils % 80.3 H Lymphocytes % 12.1 L Monocytes % 6.4 Eosinophils % 0.6 Basophils % 0.4 Nucleated Red Blood Cells % 0.0 Neutrophils # 6.6 Lymphocytes # 1.0 Monocytes # 0.5 Eosinophils # 0.1 Basophils # 0.0 Nucleated Red Blood Cells # 0.0 Sodium Level 135 Potassium Level 3.3 L Chloride Level 103 Carbon Dioxide Level 26 Anion Gap 9 Blood Urea Nitrogen 14 Creatinine 0.53 Glucose Level 131 Calcium Level 8.7 Total Bilirubin 0.5 Direct Bilirubin 0.00 Indirect Bilirubin 0.5 Aspartate Amino Transf (AST/SGOT) 18 Alanine Aminotransferase (ALT/SGPT) 21 Alkaline Phosphatase 72 Total Protein 5.8 L Albumin 3.2 L Globulin 2.60 Albumin/Globulin Ratio 1.23 Medications Medications Current Medications Ondansetron HCl (Zofran Inj) 4 mg Q6H PRN IV NAUSEA AND/OR VOMITING; Start at 13:30 Acetaminophen (Tylenol Tab) 650 mg Q6H PRN PO PAIN LEVEL 1-3 OR FEVER; Start at 13:30 Acetaminophen/ Hydrocodone Bitart ([place] (5/325)) 1 tab Q6H PRN PO MODERATE PAIN LEVEL 4-6 Last administered on 07/18/16 09:35; Admin Dose 1 TAB; Start at 13:30 Magnesium Hydroxide (Milk Of Mag) 30 ml DAILY PRN PO CONSTIPATION; Start at 13:30 Metoprolol Tartrate (Lopressor) 25 mg BID PO Last administered on 07/18/16 08: 17; Admin Dose 25 MG; Start 07/16/16 at 21:00 Multivitamins/ Minerals (Theragran-M) 1 tab DAILY PO Last administered on 08:16; Admin Dose 1 TAB; Start 07/16/16 at 15:00 Simethicone (Mylicon) 80 mg Q8H PRN PO DISTENSION/GAS/BLOATING; Start 07/16/16 at 14:00 Alprazolam (Xanax) 0.5 mg BID PRN PO ANXIETY Last administered on 07/18/16 01: 34; Admin Dose 0.5 MG; Start 07/16/16 at 14:[address] chest/abd/pelvis, mra chest reviewed in emr cxr reviewed images, no acute abnl ekg reviewed: NSR, no acute abnl HARI POTTER July 18, 2016 11:51
--- NOTE | 2016-07-18 13:18 | PDOCDIS ---
Discharge Instructions CONDITION Patient Condition: Good HOME CARE INSTRUCTIONS: Diet Instructions: RegularSpecial Diet: N/A ACTIVITY: Activity Restrictions: Slowly Increase Activity Rest between Activity Avoid heavy lifting Do not Drive Bathing Restrictions: Sponge Bath FOLLOW UP/APPOINTMENTS Appointments MASSIMO Duff MD July 18, 2016 13:18
--- NOTE | 2016-07-18 14:14 | DS ---
DATE OF ADMISSION: 07/16/2016 DATE OF DISCHARGE: HISTORY OF PRESENT ILLNESS AND HOSPITAL COURSE: This 70-year-old female was admitted because of inc reasing abdominal pain. The patient was admitted because of left lower quadrant abdominal pain. On initial examination by me, I thought the patient might have a distended bladder causing some of her pain. The patient did have a [place] catheter placed with about 300 mL of residual urine obtained. The patient then had a CAT scan of the chest, abdomen and pelvis. The chest CT showed emphysema, sc arring and apical segment right upper lobe and right lower lobe. No evidence of residual, recurrenc e or metastatic cancer. Old granulomatous disease. There was critical stenosis versus occlusion of the superior vena cava with hypertrophy chest wall collaterals. The CAT scan of the abdomen and pe lvis showed no evidence of urolithiasis or metastatic disease. There were cortical cysts of the lef t kidney and there was a left rectus sheath hematoma without active extravasation. The MRI/MRA of t he chest showed chronic occlusion of the central superior vena cava and left innominate vein with ex tensive collaterals in the chest wall and the lower neck. This was felt to be secondary to radiatio n treatment that the patient had received for lung cancer. The patient was seen in consultation by Dr. Jimenez Sullivan for cardiology and Dr. Pranav Sparks for oncology. The patient was previously on Coumadin. She was on this because of a history of atrial fibrillation flutter. She was given th is for stroke prevention. The Coumadin was discontinued last week. The patient does not have evide nce of lung cancer recurrence. She has been treated with chemotherapy and radiation by Dr. Sparks. She is still in remission. The patient will be sent home today to the care of a director of aviation and her sister. Dr. Lawson saw the patient and felt that she should continue to be off Coumadin in view of the left rectus muscle sheath hematoma and that there was no treatment to do now for the superior vena cava stenosis. She will be sent home on the following medications: 1. Albuterol inhaler 2 puffs q.i.d. p.r.n. 2. Metoprolol 25 mg twice a day. 3. Multivitamins 1 daily. 4. Xanax 0.5 mg at bedtime for sleep. 5. [place] 5/325 q.4h. p.r.n. pain. The patient was in good condition at the time of discharge. The patient will see me in my office in 1 to 2 weeks. She will call my office if she needs anything else. DISCHARGE DIAGNOSES: 1. Left rectus sheath hematoma. 2. History of lung cancer, now in remission. 3. 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 4. History of atrial fibrillation, atrial flutter. 5. Anemia. 6. Chronic obstructive pulmonary disease. Dictated By: MASSIMO POE MD, ND/BRYCE Conf#: [id number] DID#: [id number]
== END 2016-07-18 14:05 | disposition home health service (06) ==
LOC: MS1 11:56 → INTOOBSV 11:56
PROVIDERS: ADMIT Internal Medicine; ATTEND Internal Medicine
DX: M79.81 Nontraumatic hematoma of soft tissue (principal); I87.1 Compression of vein; I48.91 Unspecified atrial fibrillation; I48.92 Unspecified atrial flutter; D64.9 Anemia, unspecified; J44.9 Chronic obstructive pulmonary disease, unspecified; I10 Essential (primary) hypertension; Z87.11 Personal history of peptic ulcer disease; Z92.21 Personal history of antineoplastic chemotherapy; Z92.3 Personal history of irradiation; Z87.891 Personal history of nicotine dependence; Z79.01 Long term (current) use of anticoagulants; Z85.118 Personal history of other malignant neoplasm of bronchus and lung; Z88.0 Allergy status to penicillin; Z80.1 Family history of malignant neoplasm of trachea, bronchus and lung; Z84.1 Family history of disorders of kidney and ureter
CPT/HCPCS: 71010; 71020; 71260; 74177; 80053; 81003; 82378; 83735; 84100; 85025; 85610; 85730; 93005; 94640; 94664; C8902; G0378; Q9967; 74185; 99217